=== PATIENT | male | born 1950 | race Caucasian/White ===

== ENCOUNTER 2024-08-19 15:13 | Inpatient (IN) | payer MEDICARE, OTHER ==
[~2024-08-19 15:13] MED LIST: Iopamidol-370 76% 500 ML MDV (1 ML CHARGE) ONE
[2024-08-19 16:02] LABS: #Basophils 0.06 10x3/uL (0.0-0.2); %Basophils 0.5 % (0.0-1.0); %Eosinophils 1.6 % (0.0-10.0); %Lymphocytes 9.2 % (21.0-51.0); %Monocytes 11.3 % (0.0-10.0); %Neutrophils 76.9 % (42.0-75.0); Hematocrit 36.9 % (42.0-52.0); Hemoglobin 12.2 g/dL (14.0-18.0); Mean Corpuscular HGB CONC 33.1 g/dL (32.0-36.0); Mean Corpuscular Hemoglobin 30.1 pg (27.0-31.0); Mean Corpuscular Volume 91.1 fL (78.0-98.0); Mean Platelet Volume 8.8 fL (7.4-10.4); Platelet Count 267 10x3/uL (130-400); RBC Distribution Width 13.5 % (11.5-14.5); Red Blood Cell (RBC) Count 4.05 mill/uL (4.70-6.10)
[2024-08-19 16:23] LABS: ALT (SGPT) 20 U/L (8-55); AST (SGOT) 18 U/L (5-34); Albumin 2.7 g/dL (3.4-4.8); Alkaline Phosphatase 40 U/L (40-110); Anion Gap 13 mmol/L (10-20); BUN (Urea Nitrogen) 29 mg/dL (8.4-25.7); Bilirubin, Total 0.2 mg/dL (0.2-1.2); Calc. Creatinine Clearance 0 mL/min (70-130); Calcium 8.6 mg/dL (7.8-10.44); Carbon Dioxide 24 mmol/L (23-31); Chloride 104 mmol/L (98-107); Estimated GFR 87; Globulin 3.3 g/dL (2.4-3.5); Glucose 111 mg/dL (83-110); Potassium 3.9 mmol/L (3.5-5.1); Sodium 137 mmol/L (136-145)
[2024-08-19 16:46] LABS: Magnesium 1.9 mg/dL (1.6-2.6)
[2024-08-19 16:51] LABS: Troponin I 0.024 ng/mL (< 0.028)
[2024-08-19 17:01] LABS: Bilirubin Negative (Negative); Blood, Urine 1+ (Negative); CAUTI Indications for Culture Alt mental st,lethar; Clarity Clear (Clear); Glucose, Urine (Dipstick) Normal (Negative); Ketone, Urine Negative (Negative); Leukocyte 75 Leu/uL (Negative); Nitrite Negative (Negative); Protein, Urine (Dipstick) 300 mg/dL (Neg-Trace); Specific Gravity, Urine 1.022 (1.002-1.036); Squamous Epithelial None Seen HPF (0-3); Urobilinogen Normal mg/dL (Less than 2); WBC/HPF 21-50 HPF (0-3)
[2024-08-19 17:03] LABS: Bacteria/HPF 1+ HPF (None Seen)
[2024-08-19 17:04] LABS: Urine Culture Reflex Yes Yes
[2024-08-19] MEDS ORDERED: cefTRIAXone (ROCEPHIN) 1 GM VIAL ONE (17:58)
[2024-08-19] MEDS ORDERED: Pantoprazole 40 MG VIAL ONE (17:58)
[2024-08-19] MEDS ORDERED: levETIRAcetam 500 MG (5 mL) VIAL ONE (17:58)
[2024-08-19] MEDS ORDERED: Dexamethasone 10 MG/ML VIAL ONE (17:58)
[2024-08-19] MEDS ORDERED: Sodium Chloride 0.9% 100 ML ONE (17:58)
[2024-08-19] MEDS ORDERED: Ondansetron ODT 4 MG TAB PO PRN (19:21)
[2024-08-19] MEDS ORDERED: Ondansetron PF 4 MG/2 ML Vial IVP PRN (19:21)
[2024-08-19] MEDS ORDERED: Acetaminophen 325 MG TAB PO PRN (19:21)
[2024-08-19] MEDS ORDERED: Morphine 4 MG/ML VIAL SLOW IVP PRN (21:24)
[2024-08-19] MEDS: Dexamethasone 4 mg/ml Vial SLOW IVP SCH (21:31)
[2024-08-19 21:34] VITALS: BMI 22.2
[2024-08-20 04:01] LABS: #Basophils Less than 0.03 10x3/uL (0.0-0.2); #Eosinophils Less than 0.03 10x3/uL (0.0-0.7); %Basophils 0.2 % (0.0-1.0); %Lymphocytes 8.2 % (21.0-51.0); %Monocytes 1.6 % (0.0-10.0); %Neutrophils 89.5 % (42.0-75.0); Hematocrit 36.7 % (42.0-52.0); Hemoglobin 12.3 g/dL (14.0-18.0); Mean Corpuscular HGB CONC 33.5 g/dL (32.0-36.0); Mean Corpuscular Hemoglobin 29.6 pg (27.0-31.0); Mean Corpuscular Volume 88.2 fL (78.0-98.0); Mean Platelet Volume 8.9 fL (7.4-10.4); Platelet Count 252 10x3/uL (130-400); RBC Distribution Width 13.3 % (11.5-14.5); Red Blood Cell (RBC) Count 4.16 mill/uL (4.70-6.10)
[2024-08-20 04:13] LABS: Anion Gap 12 mmol/L (10-20); BUN (Urea Nitrogen) 24 mg/dL (8.4-25.7); Calc. Creatinine Clearance 73 mL/min (70-130); Calcium 8.4 mg/dL (7.8-10.44); Carbon Dioxide 25 mmol/L (23-31); Chloride 105 mmol/L (98-107); Estimated GFR 91; Glucose 153 mg/dL (83-110); Sodium 138 mmol/L (136-145)
[2024-08-20] MEDS: Enoxaparin 40 MG (0.4 mL) SYRINGE SC SCH (08:57)
[2024-08-20] MEDS: Digoxin 0.25 MG TAB PO SCH (08:57)
[2024-08-20] MEDS ORDERED: Magnevist 469MG/ML 20 ML VIAL ONE (11:29)
[2024-08-20] MEDS ORDERED: EPINEPHrine 1 MG/ML VIAL ONE (16:25)
[2024-08-20] MEDS ORDERED: Lidocaine 1% (PF) 30 ML VIAL ONE (16:25)
[2024-08-20] MEDS ORDERED: Thrombin 5000 UNITS/5 ML VIAL ONE (16:26)
[2024-08-20] MEDS: Protamine Sulfate 50 MG/5 ML VIAL SLOW IVP SCH (16:26)
[2024-08-20] MEDS ORDERED: Bacitracin Zinc Ointment 30 gm TUBE ONE (16:28)
[2024-08-20] MEDS ORDERED: PROPOFOL 20 ML ONE (16:30)
[2024-08-20] MEDS ORDERED: Rocuronium Bromide 10 MG/ML (10ML VIAL) ONE (16:30)
[2024-08-20] MEDS ORDERED: Bupivacaine PF 0.5% 30 ML VIAL ONE (16:33)
[2024-08-20] MEDS ORDERED: Vancomycin 1 GM VIAL ONE (16:33)
[2024-08-20] MEDS ORDERED: Albumin 5% 0 ML ONE (16:39)
[2024-08-20] MEDS ORDERED: Fentanyl 250 MCG/5 ML VIAL ONE (16:44)
[2024-08-20 17:15] LABS: INR-International Normal Ratio 1.1; PTT 27.3 sec (22.9-36.1); Prothrombin Time 14.5 sec (12.0-14.7)
[2024-08-20 17:29] LABS: HIV (1/2) Antibody/Antigen NONREACTIVE (NonReactive); HIV 1/2 INDEX 0.05 S/CO (<1.00)
[2024-08-20] MEDS ORDERED: Glycopyrrolate 0.2 MG/ML 5 ML SYRINGE ONE (17:46)
[2024-08-20] MEDS ORDERED: PHENYLEPHRINE-NS 100 MCG/ML 10 ML SYRINGE ONE (17:46)
[2024-08-20] MEDS ORDERED: Ondansetron PF 4 MG/2 ML Vial ONE (18:59)
[2024-08-20] MEDS ORDERED: Dexamethasone 4 mg/ml Vial ONE (18:59)
[2024-08-20] MEDS ORDERED: SUGAMMADEX SODIUM 200 MG/2 ML VIAL ONE (18:59)
[2024-08-20] MEDS ORDERED: Acetaminophen/Codeine 30-300mg Tablet PO PRN (19:40)
[2024-08-20] MEDS: VANCOMYCIN IVPB SCH (20:00)
[2024-08-20] MEDS: GENTAMICIN IVPB SCH (20:00)
[2024-08-20] MEDS: Sodium Chloride 0.9% 1,000 ML IV SCH (20:17)
[2024-08-20] MEDS: cefTRIAXone\\ROCEPHIN 2 GM in Sodium Chloride 0.9% 100 ML IVPB SCH ×2 (20:20→20:30)
[2024-08-20] MEDS: Pantoprazole 40 MG VIAL IVP SCH (20:20)
[2024-08-20] MEDS: Vancomycin (BATCH) 1.5 GM in Premix 1 BAG IVPB SCH (21:22)
[2024-08-20] MEDS: metroNIDAZOLE 500 MG in Premix 1 BAG IVPB SCH ×2 (21:22→21:59)
[2024-08-21 04:28] LABS: Vancomycin, Random 12.6 ug/mL (See Comment)
[2024-08-21] MEDS ORDERED: Vancomycin 1 GM in Premix 1 BAG IVPB SCH (06:00)
[2024-08-21] MEDS: Pantoprazole 40 MG VIAL IVP SCH (08:55)
[2024-08-21] MEDS: Digoxin 0.25 MG TAB PO SCH (08:55)
[2024-08-21] MEDS: Vancomycin 1 GM in Premix 1 BAG IVPB SCH (08:55)
[2024-08-22] MEDS: Dexamethasone 4 MG TAB PO SCH (08:43)
[2024-08-23 04:55] LABS: Vancomycin, Random 20.3 ug/mL (See Comment)
[2024-08-23 05:14] LABS: Toxoplasma IgG AB Less than 3.0 IU/mL (0.0-7.1)
[2024-08-23 12:38] LABS: Toxoplasma IgM AB Less than 3.0 AU/mL (0.0-7.9)
[2024-08-24] MEDS ORDERED: Sodium Bicarbonate 2.5 MEQ/5 ML SDV ONE (13:56)
[2024-08-24] MEDS ORDERED: Lidocaine 1% PF 5 ML VIAL ONE (13:56)
[2024-08-25 04:37] LABS: Vancomycin, Random 21.1 ug/mL (See Comment)
[2024-08-25 11:10] VITALS: BMI 23.1
[2024-08-25 15:53] VITALS: BP 145/83; TEMP 97.5
[2024-08-25 16:12] LABS: Fungus Stain Final report (.)
[2024-08-25 16:18] LABS: Reference Lab Name LABCORP
[2024-08-25] MEDS: metroNIDAZOLE 500 MG TAB PO SCH (18:19)
[2024-08-25] MEDS: cefTRIAXone\\ROCEPHIN 2 GM in Sodium Chloride 0.9% 100 ML IVPB SCH (18:19)
[2024-08-25] MEDS ORDERED: Metoprolol Tartrate 50 MG TAB PO SCH (21:00)
[2024-08-26] MEDS ORDERED: metroNIDAZOLE 500 MG TAB PO SCH (09:00)
[2024-08-27] MEDS ORDERED: Dexamethasone 4 MG TAB PO SCH (08:00)
[2024-08-30] MEDS ORDERED: Dexamethasone 4 MG TAB PO SCH (09:00)
[2024-09-01] MEDS ORDERED: Dexamethasone 1 MG TAB PO SCH (09:00)
[2024-09-02] MEDS ORDERED: Dexamethasone 1 MG TAB PO SCH (09:00)
== END 2024-08-25 19:50 | disposition home or self-care (01) | DRG 23 ==
LOC: ERS 15:13 → OBSVTOIN 19:23 → 2SE 19:23 → CCU 08-20 19:23 → 2SE 08-21 21:19
PROVIDERS: ADMIT Student in an Organized Health Care Education/Training Program; ATTEND Hospitalist
PROC: 0W910ZZ Drainage of Cranial Cavity, Open Approach (ICD-10-PCS; principal; 2024-08-20)
PROC: 02HV33Z Insertion of Infusion Device into Superior Vena Cava, Percutaneous Approach (ICD-10-PCS; 2024-08-24)
PROC: B5181ZA Fluoroscopy of Superior Vena Cava using Low Osmolar Contrast, Guidance (ICD-10-PCS; 2024-08-24)
DX: G06.0 Intracranial abscess and granuloma (principal); G93.41 Metabolic encephalopathy; G93.6 Cerebral edema; N39.0 Urinary tract infection, site not specified; C79.51 Secondary malignant neoplasm of bone; C61 Malignant neoplasm of prostate; Z79.899 Other long term (current) drug therapy; I10 Essential (primary) hypertension; Z98.890 Other specified postprocedural states; I71.21 Aneurysm of the ascending aorta, without rupture
CPT/HCPCS: 36415; 36416; 36569; 70450; 70553; 71270; 74178; 76376; 76937; 77001; 80048; 80053; 80202; 81001; 82248; 82565; 83615; 83735; 84100; 84153; 84443; 84484; 84550; 85025; 85610; 85730; 86777; 86778; 86850; 86900; 86901; 87040; 87070; 87076; 87081; 87086; 87102; 87205; 87206; 87389; 93005; 96365; 96375; 97139; C1713; C1751; C1889; J0171; J0665; J0696; J1100; J1650; J1953; J2405; J2470; J2704; J2720; J3010; J3370; J3370-JW; J7030; J8540; P9045; Q9967

== ENCOUNTER 2024-11-04 09:53 | Outpatient (CLI) | payer MEDICARE, OTHER | END 2024-11-04 09:54 | disposition home or self-care (01) | LOC: SCSMRI 09:53 | PROVIDERS: ATTEND Neurological Surgery | DX: G06.0 Intracranial abscess and granuloma (principal); R60.0 Localized edema; J34.89 Other specified disorders of nose and nasal sinuses | CPT/HCPCS: 70553; 76376 ==